=== PATIENT | female | born 1965 | race Hispanic/Latino ===

== ENCOUNTER 2018-04-23 21:31 | Emergency (ER) | payer BC ==
[~2018-04-23] VITALS: Ht 172.7 cm; Wt 86.2 kg
[2018-04-23] MEDS ORDERED: TETANUS/DIPHTHERIA TOX ADULT 0.5 ML SYR IM ONE (22:15)
--- NOTE | 2018-04-23 23:01 | Diagnostic Imaging Report ---
EXAMINATION: Head CT without contrast. HISTORY:Status post fall. COMPARISON:None. TECHNIQUE: Multidetector axial images were obtained from the foramen magnum to the vertex without contrast. The images were reconstructed using brain and bone algorithms. Thin section brain images were reformatted into coronal and sagittal planes. Dose modulation, iterative reconstruction, and/or weight based adjustment of the mA/kV was utilized to reduce the radiation dose to as low as reasonably achievable. Intravenous contrast: None IMAGE QUALITY: Acceptable. FINDINGS: Skull/scalp: Mild right parietal occipital scalp edema/hematoma. No acute soft tissue emphysema or radiopaque foreign body. No acute depressed or displaced calvarial fracture. Parenchyma: No abnormal density. No acute hemorrhage, mass or acute major vascular territorial infarct. Arteries: No density suggestive of thrombosis. Dural sinuses: No abnormal density suggestive of thrombosis. Ventricles: No hydrocephalus or displacement. Extra-axial spaces: No abnormal density. Brain volume: Mild generalized cerebral volume loss. Craniocervical junction: No mass, Chiari malformation, or basilar invagination. Sella: Mildly enlarged, partial empty sella. Paranasal/mastoid sinuses: Mild mucosal thickening in bilateral maxillary sinuses. Under pneumatization and sclerosis of bilateral mastoid air cells possibly related to chronic inflammatory process. IMPRESSION: 1. Mild right parietal occipital scalp edema/hematoma. No acute fracture. 2. No acute posttraumatic intracranial abnormality. 3. Mild generalized cerebral volume loss. Signed by: Dr. Mei Silva M.D. on 04/23/2018 10:57 PM
--- NOTE | 2018-04-23 23:07 | Diagnostic Imaging Report ---
History: Status post fall. Comparison studies: None Technique: Axial images were obtained through the cervical region.. Coronal and sagittal images reconstructed from the axial data. Dose modulation, iterative reconstruction, and/or weight based adjustment of the mA/kV was utilized to reduce the radiation dose to as low as reasonably achievable. Intravenous contrast: None Findings: Fractures: None. Soft tissue injuries: None. Atlantoaxial articulation: Intact. Apparent posterior translation of right posterior arch of C1 on C2 is positional, as head is tilted. Alignment: Normal lordosis. No scoliosis. Cervicomedullary junction: No abnormalities. The foramen magnum is patent. Soft tissues: No abnormalities. Vertebrae: Well-corticated osseous fragment at the tip of C7 and T1 spinous process possibly related to prior trauma. No fractures, infection or neoplasm. Degenerative changes: C6-C7: Mild right foraminal stenosis due to facet and uncovertebral arthrosis.. IMPRESSION: 1. No acute cervical spine abnormalities. 2. Ligament, spinal cord and or vascular abnormalities cannot be excluded on the basis of this examination. Signed by: Dr. Mei Silva M.D. on 04/23/2018 11:04 PM
== END 2018-04-23 23:43 | disposition home or self-care (01) ==
LOC: FSED 21:31
DX: S06.0X0A Concussion without loss of consciousness, initial encounter (principal); S00.83XA Contusion of other part of head, initial encounter; W18.39XA Other fall on same level, initial encounter; Y92.008 Other place in unspecified non-institutional (private) residence as the place of occurrence of the external cause
CPT/HCPCS: 70450; 72125; 90471; 90714; 99283